=== PATIENT | male | born 1945 | race Caucasian/White ===

== ENCOUNTER 2024-09-05 21:46 | Emergency (ER) | payer SELFPAY ==
[2024-09-05 21:49] VITALS: BP 197/104
[2024-09-05 23:00] VITALS: BP 143/69
[2024-09-05 23:11] VITALS: BMI 27.7
--- NOTE | 2024-09-05 23:27 | ED.GENMED ---
History of Present Illness
General
Chief Complaint: Social Service Referral
Source: patient and police ([place] police)
Exam Limitations: none
Time Seen by Provider: 09/05/24 23:09
Nursing documentation reviewed up to this point in time: agreed with
History of Present Illness
History of Present Illness:
This is a 79-year-old gentleman who has history of dementia, chronically unable to care for himself and resides in a secured jail facility in [facility]. He suffered a fall with parietal scalp laceration earlier today was
evaluated at our [facility] in [facility] and underwent unremarkable CT of the head and received 1 staple midline posterior parietal scalp.
Patient escaped the ED prior to transport back to the jail and was found locally by [place] police. Apparently patient had lived near this area a number of years ago.
A missing persons alert was placed earlier today by [facility].
Our ED charge nurse has been in contact with the director's of nursing from [facility], Kristal. Kristal reiterates that patient has been a long-term resident of dementia/locked unit that he is incapable of caring for himself independently
and requires 24-hour supervision. She also admits that he frequently attempts to escape, does not like being there but otherwise has not been aggressive nor agitated with staff.
He has history of escaping the facility in the past.
Patient arrives with [place] police. He offers no complaints, denies headache, denies neck or back pain. No dizziness or lightheadedness. He denies wanting to hurt himself.
He is unhappy with contemplating return to the jail.
Past History
Past History
ED Past Medical History: HTN, Hypothyroidism, Psychiatric (Dementia) and Other (BPH)
ED Past Surgical History: Cardiac (Pacemaker)
Social History
Tobacco: Smoker
Alcohol: Former
Living: jail
Family History
Family History: Other (Noncontributory)
Phy Exam
Physical Exam
Physical Exam:
GENERAL: This is a 79-year-old gentleman who appears his stated age, awake and alert, pleasant, watching TV. Offers no complaints other than refusing to return to jail facility. Moderate odor of tobacco about the patient.
EYE: pupils equal and reactive. anicteric. There is 1 intact staple midline posterior parietal scalp. Minimal local tenderness to palpation. No bleeding.
NECK: Supple, nontender, no meningismus, full range of motion without difficulty nor pain. No significant adenopathy.
ENT: posterior pharynx is clear, oral mucosa is moist. TM clear b/l, nares patent.
CARDIAC: Regular rate and rhythm. no murmur.
LUNGS: Clear breath sounds bilaterally, no acute respiratory distress, no wheezes/rales/rhonchi
ABDOMEN: Soft, nondistended, without focal tenderness, no r/g, no cvat. normoactive BS.
NEUROLOGICAL: Alert and oriented x3, no focal neuro deficits. Gait is steady.
SKIN: Warm and dry, normal color, skin intact. No rash.
MUSCULOSKELETAL: No C/C/E. peripheral pulses are full and equal b/l. No palpable tenderness.
PSYCH: Unhappy with contemplating return to jail facility otherwise cooperative with myself and staff. Denies suicidal thoughts or plan. Denies hallucinations. Speech is fluent.
Course
Orders/Labs/Results
Orders:
Orders
09/05/24 23:27
Haloperidol Lactate [Haldol] 5 mg IM NOW STA
Vital Signs
Initial and Last Documented VS:
Initial Vital Signs
Temp Pulse Resp BP Pulse Ox
98.2 F 82 20 197/104 98
09/05/24 21:49 09/05/24 21:49 09/05/24 21:49 09/05/24 21:49 09/05/24 21:49
Last Documented Vital Signs
Temp Pulse Resp BP Pulse Ox
98.2 F 65 17 143/69 98
09/05/24 21:49 09/05/24 23:30 09/05/24 23:30 09/05/24 23:00 09/05/24 23:15
MDM/Problems Addressed
Differential Diagnosis Includes:
Patient suffered mechanical fall earlier today. Evaluated at an ED in [place] and underwent unremarkable CT of the head, 1 staple to the scalp.
Remains bright and alert, oriented x 3. Denies headache, no neck or back pain.
No indication to repeat imaging.
I have spoken with directors of nursing from [facility]. She verifies that patient requires jail level care, secured facility as he is unable to care for himself independently.
She verifies that, due to inability to care for himself independently he lacks decision-making capacity.
Our plan is to return to [facility] where he has been a resident for quite some time.
Chronic conditions affecting care: Psychiatric illness
Acute Exacerbation and/or Progression of Chronic Illness: Psychiatric illness
*Pulse Oximetry
Patient hypoxic: no
*Critical Care Note
Total Time (30-74mins, 75-104mins- exclusive of procedures): Not Applicable
Update Note
Update Note:
23:30
I spoke with factors to nursingKristal from [facility]. Telephone number [phone].
She verifies that patient is a long-term resident of locked/dementia unit. She also notes that he does not like being there and frequently attempts to leave the facility, occasionally becomes upset but never severely agitated and eventually quickly
calms himself.
He suffered a fall today and thus was evaluated at our [facility] where he underwent an unremarkable CT of the head. 1 staple to superior mid parietal region.
Patient is declining to return to [place], director of planning verifies that this is the safest place for him and that he does require secured facility as he is a wander and unable to care for himself independently.
She verifies that he has no allergies.
His medications include: Tamsulosin, amlodipine, vitamin B, Synthroid.
Patient is awake and alert, cooperative with staff. Eating a snack and watching TV.
Patient deemed unable to safely make his own decisions and as such we will give an IM dose of Haldol to facilitate transport back to secure jail facility in [facility].
ED Attending Note
-
Portions of this chart may have been created with voice recognition software.� Occasional wrong word or��sound alike� substitutions may have occurred due to the inherent limitations of voice recognition software.
Discharge Plan
Departure
Patient Disposition: Jail/SNF
Date of Disposition: 09/05/24
Time of Disposition: 23:41
Patient with high blood pressure during this ER visit?: No
Discharge Problem:
Unable to care for self, At risk for escape, parietal scalp wound
Referrals:
NONE,* [Family Provider] -
Interventions
Interventions:
*Risk Screen - Suicide Last Done: 09/05/24 22:03
*General Assessment Last Done: 09/05/24 21:49
*Neglect/Abuse Screening Last Done: 09/05/24 22:03
*ED- Fall Risk Assessment Last Done: 09/05/24 22:03
*ED COVID-19 Vaccine History Last Done: 09/05/24 22:03
*Nursing Disposition Last Done: 09/05/24 23:59
ED-Psychological Assessment Last Done: 09/05/24 22:03
Discharge Date and Time
Print Language: EMIRATI
[2024-09-05] MEDS: HALDOL 5 MG IM (23:35)
== END 2024-09-06 00:01 ==
LOC: EMR 21:46
PROVIDERS: EMERGENCY PHYSICIAN Emergency Medicine
DX: F03.90 Unspecified dementia, unspecified severity, without behavioral disturbance, psychotic disturbance, mood disturbance, and anxiety (principal); I10 Essential (primary) hypertension; E03.9 Hypothyroidism, unspecified; F17.200 Nicotine dependence, unspecified, uncomplicated; N40.0 Benign prostatic hyperplasia without lower urinary tract symptoms; Z95.0 Presence of cardiac pacemaker
CPT/HCPCS: 99284; 96372